=== PATIENT | female | born 1935 | race Caucasian/White ===

== ENCOUNTER 2016-12-28 03:36 | Emergency (ER) | payer MEDICARE, OTHER ==
--- NOTE | ~2016-12-28 | ER ---
PATIENT'S NAME: SUSANA MARIN [facility] AGE: 81 Y [address] ROOM: [place] [address] LOCATION: [facility] ADMIT DATE: 12/28/2016 ER/Outpatient Report DISCHARGE DATE: 12/28/2016 FAMILY PHYSICIAN: Francis Ramesh MD ATTENDING PHYSICIAN: Faviola Franco Time of Arrival: 0336 hours. Time of Evaluation: 0337 hours. IDENTIFICATION: An 81-year-old female. CHIEF COMPLAINT: Chest pain, left arm pain, and back pain. HISTORY OF PRESENT ILLNESS: The patient is an 81-year-old female, who has no significant previous medical history, takes no medication, cares for her at home with dementia. She since Sunday has had pain behind her left shoulder, that then tonight went down her left arm and she became concerned. She does have some shortness of breath. She feels better in an upright position, worse with lying down. She denies any nausea or vomiting. No previous heart history. ALLERGIES: TO HYDROCODONE. CURRENT MEDICATIONS: Denies. MEDICAL PROBLEMS: The patient denies any medical problems. In reviewing the records, she does have a history of chronic tendinitis of the left lower extremity, history of kidney stones, diverticulosis, chronic low back pain with radiculopathy. PRIOR SURGERIES: Back surgery x2 in 2013, and D and C. SOCIAL HISTORY: The patient lives here in [place] in her home with her . 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 Tobacco use, denies. Alcohol use, denies. Drug use, denies. FAMILY HISTORY: No family history of premature coronary artery disease. She has had her parents lived into their 90s. PATIENT'S NAME: SUSANA MARIN [facility] AGE: 81 Y [address] ROOM: [place] [address] LOCATION: [facility] ADMIT DATE: 12/28/2016 ER/Outpatient Report DISCHARGE DATE: 12/28/2016 FAMILY PHYSICIAN: Francis Ramesh MD ATTENDING PHYSICIAN: Faviola Franco REVIEW OF SYSTEMS: She has had increased lower extremity edema over the last week, which is new for her. All systems reviewed and negative other than what is noted in the HPI. PHYSICAL EXAMINATION: VITAL SIGNS: Height 5 feet 5 inches, weight 58 kg, blood pressure 195/113, pulse 106, respirations 18, temp 96.9, sats 97% on room air. GENERAL: An 81-year-old female, in no acute distress, although she rates her pain 4 to 5 out of 10 on the pain scale. HEENT: Head: Normocephalic, atraumatic. Ears: TMs not visualized. Eyes: Pupils equal and reactive to light and accommodation. Extraocular movements intact. Nose: Mucosa pink. No lesions. Mouth: No lesions. Pharynx benign. NECK: Supple. No lymphadenopathy. LUNGS: Clear to auscultation. No rhonchi, wheezes, or rales. HEART: Irregularly irregular rhythm. Rate controlled. No murmur, rub, or gallop. ABDOMEN: Bowel sounds present. Soft, nondistended, nontender. She has no chest wall tenderness. SKIN: [place], warm, and dry. NEURO: The patient is alert and oriented x4. Cranial nerves 2 through 12 grossly intact. Motor strength 5/5 throughout. Sensation is intact to light touch. EXTREMITIES: She does have 1+ bilateral lower extremity edema. No calf tenderness. Negative Homans. EMERGENCY DEPARTMENT COURSE: An IV was initiated. The patient was placed on a playground monitor. EKG was obtained at 0342 hours. Atrial fibrillation at 100 beats per minute. Occasional PVC. No acute ST elevation. Q waves are noted anteriorly. No previous EKG available for comparison. ST depression is noted in V5 and V6. Repeat EKG at 5:08, atrial fibrillation at 76 beats per minute. No acute ST elevation. Occasional PVC. Q-waves present in V1 to V3. ST depression that was present in V5 and V6 is actually improved on this repeat EKG. Chest x- ray, cardiomegaly and increased vascular congestion. Pending Radiology over- read. The patient took two full-strength aspirin at home prior to arrival so was not given baby aspirin here. She was given one nitroglycerin tablet sublingual, which did relieve the shoulder pain, and her blood pressure also improved to 142/69, 142/70. LABORATORY DATA AND X-RAYS: Sodium 143, potassium 4.5, chloride 109, CO2 of 26, BUN 27, creatinine 0.9, blood sugar 96. Liver enzymes: AST 45, ALT 59, magnesium 2.1. CK 125, CK-MB PATIENT'S NAME: SUSANA MARIN [facility] AGE: 81 Y [address] ROOM: [place] [address] LOCATION: [facility] ADMIT DATE: 12/28/2016 ER/Outpatient Report DISCHARGE DATE: 12/28/2016 FAMILY PHYSICIAN: Francis Ramesh MD ATTENDING PHYSICIAN: Faviola Franco 4.2, troponin I less than 0.040. ProBNP elevated at 1895. Hemoglobin 14.4, hematocrit 44.4, platelets 181, white count 7.9, normal differential. INR 1.1. D-dimer 0.56. Free T4 1.1, which is normal. TSH elevated at 8.690. Repeat 90-minute enzyme: CPK 83, CK-MB 33.7, troponin I less than 0.040. IMPRESSION: 1. Atrial fibrillation, new onset, rate controlled at this point. 2. Hypertensive urgency. 3. Congestive heart failure. 4. Left arm pain. Relieved with nitroglycerin. 5. Elevated TSH, but normal free T4. PLAN: Recommended for admission. The patient is unable to stay due to caring for her at home with dementia, and she is refusing at this point to stay. I did discuss with primary care physician, Dr. Ramesh. We will plate give her metoprolol 25 mg orally here, Norvasc 5 mg orally. She will remain on these once daily. Prescriptions were given for 1 month. Aspirin 81 mg daily. Rest. No exertion and follow up this afternoon with Dr. Ramehs in the clinic. Follow up immediately if any recurrence of pain. The patient understands and agrees, and all questions have been answered at this time. FAVIOLA FRANCO MD CAR/modl /[id number] d: 12/28/162237 t: 12/30/16 0645, OUTPATIENT REPORT
[~2016-12-28 03:36] MED LIST: CALCIUM CARBON600 MG PO; FISH OIL1000 MG PO
[2016-12-28 03:58] LABS: BASOPHIL % 0.5 %; EOSINOPHIL # 0.1 K/uL (0.0-0.5); EOSINOPHIL % 1.1 %; HEMATOCRIT 44.4 % (30.0-46.0); HEMOGLOBIN 14.4 g/dL (10.0-15.0); IMMATURE GRANULOCYTE % 0.3 %; LYMPHOCYTE # 3.1 K/uL (0.8-4.0); LYMPHOCYTE % 39.5 %; MCH 32.1 pg (27.0-34.0); MCHC 32.4 gm/dL (32.0-36.5); MCV 98.9 fl (83.0-98.0); MONOCYTE # 0.7 K/uL (0.0-1.0); MONOCYTE % 8.5 %; NEUTROPHIL % 50.1 %; NRBC % 0 /100WBC (0-0.00); PLATELET COUNT 181 K/uL (150-450); RBC 4.49 M/uL (3.00-5.00); RDW-CV 13.7 % (11.9-14.6); WBC 7.9 K/uL (4.0-11.0)
[2016-12-28 04:08] LABS: INR - (THERAPEUTIC) 1.1 (0.9-1.1); PROTIME 11.1 SECONDS (9.6-11.1); PTT 25 SECONDS (25-32)
[2016-12-28 04:16] LABS: ALBUMIN 3.7 gm/dL (3.5-5.0); ALK PHOS 80 IU/L (33-138); ALT 59 IU/L (12-78); ANION GAP 12.5 (10.0-19.0); AST 45 IU/L (10-40); BLOOD UREA NITROGEN 27 mg/dL (6-24); CALCIUM 8.5 mg/dL (8.5-10.5); CHLORIDE 109 mMol/L (96-110); CO2 26 mMol/L (22-32); CPK 125 IU/L (21-215); CREATININE 0.9 mg/dL (0.5-1.1); ESTIMATED GFR (MDRD EQUATION) 60; MAGNESIUM 2.1 mg/dL (1.3-2.6); SODIUM 143 mMol/L (135-145); TOTAL BILIRUBIN 0.8 mg/dL (0.0-1.5); TOTAL PROTEIN 6.4 g/dL (6.0-8.4)
[2016-12-28 04:17] LABS: POTASSIUM 4.5 mMol/L (3.7-5.1)
[2016-12-28 05:49] LABS: CPK 83 IU/L (21-215)
== END 2016-12-28 06:30 | disposition disaster alternative care site (69) ==
LOC: GMED 03:36
PROVIDERS: Family Medicine
DX: I48.91 Unspecified atrial fibrillation (principal); I16.0 Hypertensive urgency; I50.9 Heart failure, unspecified; M79.602 Pain in left arm; R94.6 Abnormal results of thyroid function studies; Z88.8 Allergy status to other drugs, medicaments and biological substances

== ENCOUNTER → 2017-01-03 | Outpatient (CLI) | payer MEDICARE, OTHER | END | disposition disaster alternative care site (69) | LOC: LCNC 14:13 | DX: R07.9 Chest pain, unspecified (principal) ==

== ENCOUNTER 2017-01-08 21:50 | Emergency (ER) | payer MEDICARE, OTHER ==
--- NOTE | ~2017-01-08 | ER ---
PATIENT'S NAME: SUSANA MARIN [facility] AGE: 81 Y [address] ROOM: [place] [address] LOCATION: [facility] ADMIT DATE: 01/08/2017 ER/Outpatient Report DISCHARGE DATE: 01/08/2017 FAMILY PHYSICIAN: Francis Ramesh MD ATTENDING PHYSICIAN: Boo Riojas Time of Arrival: 2154 hours. Time of Evaluation: 2200 hours. CHIEF COMPLAINT: Left knee pain. HISTORY OF PRESENT ILLNESS: The patient states approximately 3 hours prior to arrival, she was taking her trash container from the street back up towards the house when she fell, ended up landing on her knees. She has had discomfort in the left knee ever since. Also, has some discomfort of the right elbow area. Denies hitting her head. Did not have any loss of consciousness. She did put ice on it right after it happened, but it has swollen quite a bit and has her concerned. ALLERGIES: NO KNOWN ALLERGIES. CURRENT MEDICATIONS: On her chart and reviewed by me. PAST MEDICAL HISTORY: She was recently diagnosed with atrial fib, started on the current list of medications, also diagnosed with hypertension. She is scheduled to see Dr. 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 SURGERIES: None. SOCIAL HISTORY: Denies use of tobacco, drugs, or alcohol. 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 REVIEW OF SYSTEMS: All negative other than those mentioned in the HPI. PHYSICAL EXAMINATION: VITAL SIGNS: She weighed 57.6 kg. Blood pressure is 222/88, pulse of 97, PATIENT'S NAME: SUSANA MARIN [facility] AGE: 81 Y [address] ROOM: [place] [address] LOCATION: [facility] ADMIT DATE: 01/08/2017 ER/Outpatient Report DISCHARGE DATE: 01/08/2017 FAMILY PHYSICIAN: Francis Ramesh MD ATTENDING PHYSICIAN: Boo Riojas respirations 16, temperature of 97.6, and O2 saturation is 94% on room air. GENERAL: She is awake and alert and oriented x4. SKIN: [place], warm, and dry. RESPIRATIONS: Even and nonlabored. She has swelling and bruising noted of the anterior left knee area. She has strong pedal pulses. It is tender to flex her knee, but able to extend without increased pain. LABORATORY DATA AND X-RAYS: X-ray was completed, reviewed with Dr. Riojas. No bony abnormality is seen. IMPRESSION: Contusion to the left knee, contusion to the right elbow. PLAN: Home, rest. Ice to the sore areas. She has good range of motion of her right elbow and did not want an x-ray. She could use Tylenol as needed for discomfort. Continue to follow Dr. Mccarthy's plans for test on Sunday. See Dr. Ramesh if her knee becomes increased in pain. She verbalized understanding. STEPHANIE RAMOS APRN FOR MD SVITLANA CERVANTES/modl /[id number] d: 01/09/17 0257 t: 01/15/17 1212, OUTPATIENT REPORT
== END 2017-01-08 22:40 | disposition disaster alternative care site (69) ==
LOC: GACC 21:50
DX: S80.02XA Contusion of left knee, initial encounter (principal); S50.01XA Contusion of right elbow, initial encounter; I10 Essential (primary) hypertension; I48.91 Unspecified atrial fibrillation; W19.XXXA Unspecified fall, initial encounter

== ENCOUNTER → 2017-01-11 | Outpatient (CLI) | payer MEDICARE, OTHER ==
--- NOTE | ~2017-01-11 | ESTC ---
Cardiac Perfusion Imaging Demographics Patient Name TANIA De La Fuente Gender Female Patient Number [id number] Race Visit Number [id number] Ethnicity Corporate ID Room Number Accession Number [id number] Height Date of 1935 Weight Age 81 year(s) BSA Referring Physician Gadiel Gay MD BMI Interpreting Roel Delarosa Date of study 01/11/2017 Physician Supervising MD/VICKYP Roel Delarosa NM Technologist MD Ordering Physician Roel Delarosa Stress MD aircraft avionics technician Stress ECG Reading Roel Delarosa Nurse Propkatrina Horan RN Physician Procedure Procedure Type: Nuclear Stress Test:Pharmacological, Lexiscan, Cardiolite Stress Test Procedure Start time: 01/11/2017 08:45 Indications: Chest pain. Risk Factors The patient risk factors include:former tobacco use. Conclusions Summary No TID. Inferior medium to large mild to moderate fixed defect most consistent with soft tissue attenuation. LVEF:67%. No WMAs. No EKG changes of ischemia, Stress Protocols Resting ECG A fib with CVR. PVCs. Pre-stress physical exam: Un changed. Predicted HR: 138 bpm ECG Findings No ECG changes suggestive of ischemia. Arrhythmias No new rhythm abnormality. Symptoms Head pressure. Stress Interpretation Lexiscan with normal hemodynamic response. Underlying afib with cvr and PVCs un changed. No chest pain.Had some head pressure. No EKG changes of ischemia. Imaging Results High risk findings Summed scores - Summed stress score: 6 - Summed rest score: 5 - Summed difference score: 1 Stress ejection Ejection fraction:67 % EDV :92 ml ESV :30 ml Stroke volume :62 ml LV mass :148 gr LV size:Normal Normal LV function Imaging Protocols Rest Stress Isotope:Tc99m Sestamibi IV Isotope dose:30.6 mCi Isotope dose:10.4 mCi Date:01/11/2017 09:25 Date:01/11/2017 07:30 Technique: SPECT Technique: Gated Supine SPECT Supine Scan Time:45-60 minutes post Scan Time:45-60 minutes post injection injection Procedure Medications - Regadenoson (Lexiscan) 0.4 mg IV over 10-15 sec. . Medical History Admission Data Admission date: 01/11/2017 Admission Time: 06:59 Hospital Status: Outpatient. Signatures dtt: Isaura Sevilla dtjose: 01/11/17 0845 Physician Self Edit
== END | disposition disaster alternative care site (69) ==
LOC: GRAD 06:59
DX: R07.9 Chest pain, unspecified (principal); Z87.891 Personal history of nicotine dependence
CPT/HCPCS: A9500; J2785

== ENCOUNTER → 2017-02-08 | Emergency (ER) | payer OTHER, MEDICARE | END | disposition disaster alternative care site (69) | LOC: GAMB 21:57 | DX: S89.91XA Unspecified injury of right lower leg, initial encounter (principal); M79.89 Other specified soft tissue disorders; M79.671 Pain in right foot; M79.661 Pain in right lower leg; Z79.2 Long term (current) use of antibiotics; Z79.899 Other long term (current) drug therapy ==